=== PATIENT | female | born 1995 | race Caucasian/White ===

== ENCOUNTER 2021-09-20 07:38 | Inpatient (IN) | payer OTHER ==
[2021-09-20] MEDS: ELECTROLYTE-148 SOLN 1,000 ML IV SCH ×2 (08:40→12:40)
[2021-09-20 09:12] VITALS: BMI 32.7
[2021-09-20 10:10] LABS: EOS % 0.2 % (0-4.5); HEMATOCRIT 36.2 % (32.4-45.2); HEMOGLOBIN 12.7 GM/dL (10.7-15.3); LYMPH % 7.7 % (8-40); MCH 31.4 pg (25.7-33.7); MCHC 35.2 g/dl (32.0-36.0); MEAN CELL VOLUME 89.2 fl (80-96); MEAN PLT VOLUME 8.4 fl (7.5-11.1); MONO % 3.9 % (3.8-10.2); NEUT % 88.2 % (42.8-82.8); PLATELET COUNT 189 10^3/uL (134-434); RBC 4.06 M/mm3 (3.60-5.2); WHITE BLOOD COUNT 11.1 K/mm3 (4.0-10.0)
[2021-09-20 10:17] LABS: INR 0.93 (0.83-1.09); PROTHROMBIN TIME (PATIENT) 10.7 SEC (9.7-13.0)
[2021-09-20] MEDS ORDERED: LIDOCAINE HCL 1% PRESERVATIVE FREE - 30ML VIAL ONE ×2 (10:17→10:22)
[2021-09-20] MEDS ORDERED: OXYTOCIN 20 UNITS in 0.9% NS 20 UNIT/1,000 ML INFUS.BAG IV ONE ×2 (10:17→17:23)
[2021-09-20 10:20] LABS: ACTIVATED PTT 28.1 SECONDS (25.2-36.5)
[2021-09-20] MEDS ORDERED: BUPIVACAINE HCL/PF 0.25% (2.5MG/ML) 10 ML VIAL ONE (10:22)
[2021-09-20 10:28] LABS: BLOOD UREA NITROGEN 8.3 mg/dL (7-18); CALCIUM 8.7 mg/dL (8.5-10.1)
[2021-09-20 10:31] LABS: CREATININE 0.4 mg/dL (0.55-1.3)
[2021-09-20] MEDS: FENTANYL/BUPIVACAINE/NS/PF - PCEA - 50 ML DISP.SYRIN EP SCH (10:40)
[2021-09-20] MEDS ORDERED: FENTANYL/BUPIVACAINE/NS/PF - PCEA - 50 ML DISP.SYRIN EP ONE (11:10)
[2021-09-20] MEDS ORDERED: NALOXONE HCL 0.4 MG/ML VIAL IVPUSH PRN (12:21)
[2021-09-20] MEDS ORDERED: ELECTROLYTE-148 SOLN 500 ML IV ONE (14:45)
[2021-09-20] MEDS ORDERED: CITRIC ACID/SODIUM CITRATE 30 ML UNIT-DOSE CUP PO ONE (14:45)
[2021-09-20] MEDS ORDERED: IBUPROFEN 600 MG TABLET (FP) PO PRN (15:02)
[2021-09-20] MEDS ORDERED: IBUPROFEN 800 MG/8 ML IJ IVPB PRN (15:02)
[2021-09-20] MEDS ORDERED: SIMETHICONE 80 MG TAB.CHEW (FP) PO PRN (15:02)
[2021-09-20] MEDS ORDERED: ACETAMINOPHEN 325 MG TABLET (FP) PO PRN (15:02)
[2021-09-20] MEDS ORDERED: morphine SULFATE/PF 1 MG/2 ML (2cc Syringe - QUVA) ONE (15:23)
[2021-09-20] MEDS ORDERED: ONDANSETRON 4 MG/2 ML VIAL IVPUSH PRN (16:27)
[2021-09-20] MEDS: OXYTOCIN 20 UNITS in 0.9% NS 20 UNIT/1,000 ML INFUS.BAG IV SCH (17:25)
[2021-09-21] MEDS: OXYTOCIN 20 UNITS in 0.9% NS 20 UNIT/1,000 ML INFUS.BAG IV SCH (00:11)
[2021-09-21] MEDS ORDERED: oxyCODONE HCL 5 MG TABLET PO PRN (03:02)
[2021-09-21] MEDS ORDERED: CEFAZOLIN 1 GM in DEXTROSE 5%-WATER - 50 ML IVPB ONE (06:41)
[2021-09-21] MEDS ORDERED: DEXTROSE 5%-WATER - 50 ML IVPB ONE (07:21)
[2021-09-21] MEDS ORDERED: ceFAZolin SODIUM 1 GM VIAL ONE (07:21)
[2021-09-21 07:27] LABS: BASO % 0.1 % (0-2.0); EOS % 0.5 % (0-4.5); HEMATOCRIT 28.5 % (32.4-45.2); MCH 31.7 pg (25.7-33.7); MCHC 35.2 g/dl (32.0-36.0); MEAN CELL VOLUME 90.1 fl (80-96); MEAN PLT VOLUME 8.4 fl (7.5-11.1); MONO % 5.6 % (3.8-10.2); NEUT % 84.8 % (42.8-82.8); PLATELET COUNT 139 10^3/uL (134-434); RBC 3.16 M/mm3 (3.60-5.2); WHITE BLOOD COUNT 11.9 K/mm3 (4.0-10.0)
[2021-09-21] MEDS ORDERED: BISACODYL 10 MG SUPP.RECT RC PRN (15:02)
[2021-09-21] MEDS ORDERED: AMPICILLIN SODIUM 1 GM VIAL ONE (19:37)
[2021-09-21] MEDS ORDERED: SODIUM CHLORIDE 100 ML IVPB ONE (19:37)
[2021-09-21] MEDS: AMPICILLIN - 1 GM in SODIUM CHLORIDE 100 ML IVPB SCH (19:49)
[2021-09-21] MEDS: GENTAMICIN 80 MG PREMIXED IVPB 80 MG/100 ML BAG IVPB SCH (20:24)
[2021-09-21 20:27] LABS: BASO % 0.1 % (0-2.0); EOS % 0.5 % (0-4.5); HEMATOCRIT 27.7 % (32.4-45.2); HEMOGLOBIN 9.6 GM/dL (10.7-15.3); LYMPH % 7.8 % (8-40); MCH 31.2 pg (25.7-33.7); MCHC 34.8 g/dl (32.0-36.0); MEAN CELL VOLUME 89.8 fl (80-96); MEAN PLT VOLUME 8.2 fl (7.5-11.1); MONO % 5.1 % (3.8-10.2); NEUT % 86.5 % (42.8-82.8); PLATELET COUNT 171 10^3/uL (134-434); RBC 3.09 M/mm3 (3.60-5.2); RDW 13.2 % (11.6-15.6); WHITE BLOOD COUNT 11.1 K/mm3 (4.0-10.0)
[2021-09-21 20:39] LABS: CALCIUM 7.6 mg/dL (8.5-10.1)
[2021-09-21 20:40] LABS: BLOOD UREA NITROGEN 7.2 mg/dL (7-18)
[2021-09-21 20:43] LABS: CREATININE 0.6 mg/dL (0.55-1.3)
[2021-09-21 20:45] LABS: BILIRUBIN,TOTAL 0.8 mg/dL (0.2-1); TOT PROT 4.7 g/dl (6.4-8.2)
[2021-09-22] MEDS: FENTANYL/BUPIVACAINE/NS/PF - PCEA - 50 ML DISP.SYRIN EP SCH (00:15)
[2021-09-22] MEDS ORDERED: SODIUM CHLORIDE 100 ML IVPB ONE ×3 (02:43→17:34)
[2021-09-22] MEDS ORDERED: AMPICILLIN SODIUM 1 GM VIAL ONE ×3 (02:43→17:34)
[2021-09-22] MEDS: AMPICILLIN - 1 GM in SODIUM CHLORIDE 100 ML IVPB SCH ×3 (02:52→17:44)
[2021-09-22] MEDS: GENTAMICIN 80 MG PREMIXED IVPB 80 MG/100 ML BAG IVPB SCH ×3 (03:34→18:24)
[2021-09-23] MEDS ORDERED: SODIUM CHLORIDE 100 ML IVPB ONE (01:06)
[2021-09-23] MEDS ORDERED: AMPICILLIN SODIUM 1 GM VIAL ONE (01:06)
[2021-09-23] MEDS: AMPICILLIN - 1 GM in SODIUM CHLORIDE 100 ML IVPB SCH (01:43)
[2021-09-23] MEDS: GENTAMICIN 80 MG PREMIXED IVPB 80 MG/100 ML BAG IVPB SCH (02:03)
[2021-09-23 07:26] LABS: BASO % 0.3 % (0-2.0); EOS % 4.1 % (0-4.5); HEMATOCRIT 29.5 % (32.4-45.2); HEMOGLOBIN 10.4 GM/dL (10.7-15.3); LYMPH % 13.3 % (8-40); MCH 31.8 pg (25.7-33.7); MCHC 35.1 g/dl (32.0-36.0); MEAN CELL VOLUME 90.5 fl (80-96); MEAN PLT VOLUME 7.9 fl (7.5-11.1); NEUT % 75.3 % (42.8-82.8); PLATELET COUNT 185 10^3/uL (134-434); RBC 3.26 M/mm3 (3.60-5.2); RDW 13.1 % (11.6-15.6)
[2021-09-23 10:17] VITALS: BP 100/64; PULSE 100; TEMP 98.3
[2021-09-23] MEDS ORDERED: AMOX TR/POT CLAV 875MG/125MG TABLETS (FP) PO SCH (17:30)
== END 2021-09-23 17:41 | disposition home or self-care (01) | DRG 540 ==
LOC: JDEL 07:38 → JLDR 08:10 → J3W 17:45
PROVIDERS: ADMIT Student in an Organized Health Care Education/Training Program; ATTEND Student in an Organized Health Care Education/Training Program
PROC: 10D00Z1 Extraction of Products of Conception, Low, Open Approach (ICD-10-PCS; principal; 2021-09-20)
PROC: 10907ZC Drainage of Amniotic Fluid, Therapeutic from Products of Conception, Via Natural or Artificial Opening (ICD-10-PCS; 2021-09-20)
DX: O66.41 Failed attempted vaginal birth after previous cesarean delivery (principal); O86.4 Pyrexia of unknown origin following delivery; O32.4XX0 Maternal care for high head at term, not applicable or unspecified; Z37.0 Single live birth; Z3A.39 39 weeks gestation of pregnancy
CPT/HCPCS: 36415; 71046-TC-FY; 80048; 80053; 85025; 85610; 85730; 86780; 86850; 86900; 86901; 87040; 87086; 88307-TC; 94010; C9803-CS; U0003; U0005